=== PATIENT | female | born 1985 | race Caucasian/White ===

== ENCOUNTER 2021-09-28 18:34 | Emergency (ER) | payer BC, SELFPAY ==
--- NOTE | ~2021-09-28 | XR_ITS ---
EXAM: XR thoracic spine 3V DATE: 09/28/2021 19:31 HISTORY: KNI.BACK PAIN X 1 WEEK. PAIN MORE ON LT. SIDE. . COMPARISON: None available. FINDINGS: Vertebral body alignment intact. Vertebral body heights preserved. No disc space narrowing . No traumatic malalignment or fracture. Visualized lung parenchyma is clear. IMPRESSION: No acute fracture or traumatic malalignment in the thoracic spine.. Reviewed, dictated and finalized at location K.
--- NOTE | ~2021-09-28 | XR_ITS ---
EXAM: XR lumbar spine 2-3V DATE: 09/28/2021 19:32 HISTORY: KNI. BACK PAIN X 1 WEEK, PAIN MORE ON LT. SIDE. . COMPARISON: None available. FINDINGS: 5 nonrib-bearing lumbar-type vertebral bodies. Pedicles intact. Normal vertebral body alig nment. Vertebral body heights preserved. Disc spaces maintained. Normal facets and posterior elements . No fracture or dislocation. IMPRESSION: No acute fracture or traumatic malalignment in the lumbar spine. Reviewed, dictated and finalized at location K.
[2021-09-28 18:45] VITALS: BP 120/74; PULSE 73; RESP 18; TEMP 37; O2SAT 99
--- NOTE | 2021-09-28 19:21 | ED.GENADULT ---
HPI - General Adult General Chief complaint: Back Pain/Injury Stated complaint: knot on back by shoulder blades Source: patient Mode of arrival: ambulatory Limitations: no limitations History of Present Illness HPI narrative: Patient presents for evaluation of back pain for the last week. She indicates she moved 2 weeks ago but does not remember injuring herself at that time. Pain has been fairly constant over the last week. She describes it as a burning pain, without numerical rating. It radiates from her thoracic to lumbar spine. Movement causes pain radiation into the left scapula. She has been taking Tylenol for symptoms without considerable improvement thereafter. No additional complaints or concerns. Related Data Allergies Allergy/AdvReac Type Severity Reaction Status Date / Time No Known Allergies Allergy Unverified 09/28/21 18:55 Review of Systems Review of Systems: CONSTITUTIONAL: Denies fever, chills, or sweats. EYES: Denies visual changes, redness, or discharge. ENT: Denies rhinorrhea, congestion, sore throat, or otalgia. CARDIOVASCULAR: Denies chest pain, palpitations, or edema. RESPIRATORY: Denies cough or dyspnea. GASTROINTESTINAL: Denies abdominal pain, nausea, vomiting, or diarrhea. GENITOURINARY: Denies dysuria or hematuria. SKIN: Denies rash or itching. MUSCULOSKELETAL: Reporst back pain. Denies joint pain, or myalgia. NEUROLOGIC: Denies headache, numbness, dizziness, or weakness. PSYCHIATRIC: Denies anxiety or depression. [facility] Past Medical History Medical History (Updated 09/28/21 @ 19:46 by Tian Sanchez, GENESIS, ) No pertinent past medical history Surgical History Surgical History No pertinent past surgical history Family History Family History Mother Family history non-contributory Social History Social History Smoking packs per day: 0.5 Smoking cigarettes per day: 10.0 Smoking status: Current every day smoker Alcohol intake: current Alcohol use details: social Substance use: current Substance use type: marijuana Additional living arrangements comments: Lives with fiance Gender identity (if verbalized by the patient): Female Sexual Orientation (if Verbalized by the Patient): Straight or Heterosexual Spiritual care concerns: No Exam Narrative: GENERAL: Well-appearing, well-nourished, and in no acute distress. HEAD: Normocephalic, atraumatic. EYES: PERRLA and EOMI. ENT: Nares clear, no rhinorrhea or epistaxis. Mucous membranes moist. Oropharynx without tonsillar hypertrophy exudate or other lesions. Bilateral TMs pearly leslie nonbulging NECK: Supple. No adenopathy or masses. No carotid bruits or JVD CHEST: Clear to auscultation. No respiratory distress. No wheezes rales or rhonchi HEART: Regular rate and rhythm. No murmur heard. Normal peripheral pulses. ABDOMEN: Soft, nontender, nondistended, normal active bowel sounds. EXTREMITIES: Normal range of motion. No edema. BACK: Tenderness in midline and paraspinous muscles bilaterally of thoracic spine SKIN: Warm, dry, no rash. NEURO: No focal deficits. Alert and oriented x3. PSYCH: Normal mood and affect. Course Course Emergency Course: This is a 36-year-old female who present with complaints of low back pain and thoracic back pain after recent move. X-rays were negative for fracture. She was given Toradol. Will discharge with ibuprofen and Flexeril. She should follow-up outpatient for further evaluation and treatment and return for worsening symptoms. Patient agreed with plan of care. Level of Care: Express Care Visit Vital Signs Vital signs: Vital Signs Temperature 37.0 C 09/28/21 18:45 Pulse Rate 73 09/28/21 18:45 Respiratory Rate 18 09/28/21 18:45 Blood Pressure 120/74 09/28/21 18:45 Pulse Oximetry
[2021-09-28] MEDS: KETOROLAC (*BKC) 60 MG/2 ML VIAL IM (19:31)
== END 2021-09-28 19:58 | disposition home or self-care (01) ==
PROVIDERS: Emergency Provider Nurse Practitioner
DX: S29.012A Strain of muscle and tendon of back wall of thorax, initial encounter (principal); S39.012A Strain of muscle, fascia and tendon of lower back, initial encounter; X58.XXXA Exposure to other specified factors, initial encounter; F17.210 Nicotine dependence, cigarettes, uncomplicated
CPT/HCPCS: 72072; 72100; 81025; 96372; 99203; G0463; J1885